=== PATIENT | female | born 1990 | race Hispanic/Latino ===

== ENCOUNTER 2017-09-15 18:14 | Emergency (ER) | payer MEDICAID ==
[2017-09-15 18:24] VITALS: TEMP 98; O2SAT 98
[2017-09-15] MEDS ORDERED: Tetracaine 0.5% Ophth (OR ONLY) ONE (19:19)
[2017-09-15] MEDS ORDERED: Fluorescein 1 mg Ophthalmic Strip ONE (19:19)
--- NOTE | 2017-09-15 19:32 | C.PDOC ---
History Of Present Illness 26 y/o female presents to ED with complaints of left eye discomfort and redness intermittently for 2 days. Patient states today she woke up with crusting to left eyelid and swelling which prompted visit to ED. Patient denies trauma, itching, teary eyes, URI symptoms or any other complaints at this time. Time Seen by Provider: 09/15/17 19:15 Chief Complaint (Nursing): Eye Problem History Per: Patient History/Exam Limitations: no limitations Onset/Duration Of Symptoms: Days Current Symptoms Are (Timing): Still Present Injury To Eye?: No Past Medical History Reviewed: Historical Data, Nursing Documentation, Vital Signs Vital Signs: Last Vital Signs Temp 98.0 F 09/15/17 18:22 Pulse 72 09/15/17 19:54 Resp 18 09/15/17 19:54 BP 124/72 09/15/17 19:54 Pulse Ox 98 09/15/17 19:54 Surgical History: Cholecystectomy - [facility] Procedures IRRIGATION OF EAR (06/02/15) Family History: States: No Known Family Hx - Social History Hx Tobacco Use: Yes Hx Alcohol Use: Yes Hx Substance Use: No - Immunization History Hx Tetanus Toxoid Vaccination: No Hx Influenza Vaccination: No Hx Pneumococcal Vaccination: No Review Of Systems Constitutional: Negative for: Fever, Chills Eyes: Positive for: Pain, Eyelid Inflammation, Redness ENT: Negative for: Ear Pain, Throat Pain Respiratory: Negative for: Cough Skin: Negative for: Rash Physical Exam - Physical Exam Appears: Non-toxic, No Acute Distress Skin: Warm, Dry, No Rash Head: Atraumatic, Normacephalic Eye(s): right: Normal Inspection, left: Other ((+)Infraorbital swelling (+)Mild ciliary injection of left conjunctiva .Acuity check 20/20 bilaterally ) Nose: Normal Oral Mucosa: Moist Throat: Normal, No Erythema, No Exudate Neck: Supple Chest: Symmetrical Extremity: Normal ROM, Capillary Refill (<2 seconds) Neurological/Psych: Oriented x3, Normal Speech, Normal Motor, Normal Sensation ED Course And Treatment O2 Sat by Pulse Oximetry: 98 (RA) Pulse Ox Interpretation: Normal Disposition - Disposition Referrals: Nanda Spears MD [Staff Provider] - Disposition: HOME/ ROUTINE Disposition Time: 19:29 Condition: STABLE Additional Instructions: Please follow up with PMD Use medications as directed Return to ER if worse Prescriptions: Cetirizine HCl [Zyrtec] 10 mg PO DAILY #20 capsule Tobramycin 0.3% [Tobrex 0.3% Opth Soln] 1 drop OS TID #1 bottle Instructions: Conjunctivitis (ED) Forms: [facility] (Sammarinese) - Clinical Impression Clinical Impression: Conjunctivitis - 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 - Scribe Statement The provider has reviewed the documentation as recorded by the Ananthibmaribell Person All medical record entries made by the Fouzia were at my direction and personally dictated by me. I have reviewed the chart and agree that the record accurately reflects my personal performance of the history, physical exam, medical decision making, and the department course for this patient. I have also personally directed, reviewed, and agree with the discharge instructions and disposition.
[2017-09-15 19:55] VITALS: BP 124/72; PULSE 72; RESP 18
== END 2017-09-15 19:56 | disposition home or self-care (01) ==
LOC: C.ER 18:14
DX: H10.9 Unspecified conjunctivitis (principal)

== ENCOUNTER 2018-11-09 20:39 | Emergency (ER) | payer MEDICAID | END 2018-11-09 21:37 | disposition home or self-care (01) | LOC: C.ER 20:39 ==

== ENCOUNTER 2019-01-01 19:38 | Emergency (ER) | payer MEDICAID ==
[2019-01-01 19:45] VITALS: RESP 20
[2019-01-01] MEDS ORDERED: Sodium Chloride 0.9% 1,000 ML IV ONE (20:01)
[2019-01-01] MEDS ORDERED: Sodium Chloride 0.9% 1,000 ML ONE (20:18)
--- NOTE | 2019-01-01 20:25 | C.PDOC ---
History Of Present Illness 28 y/o female comes in to ED complaining of lower abdominal pain x2 weeks that has worsened for the last 2 days. Patient denies nausea, vomiting, diarrhea, vaginal bleeding or discharge. Reports she was seen by OB who saw UTI and p atient was given antibiotics. Patient states that the pain persisted so she comes to the ER. Chief Complaint (Nursing): Abdominal Pain History Per: Patient History/Exam Limitations: no limitations Onset/Duration Of Symptoms: Days Current Symptoms Are (Timing): Still Present Past Medical History Reviewed: Historical Data, Nursing Documentation, Vital Signs Vital Signs: Last Vital Signs Temp 97.7 F 01/01/19 19:41 Pulse 106 H 01/01/19 19:41 Resp 20 01/01/19 19:41 BP 147/90 01/01/19 19:41 Pulse Ox 100 01/01/19 19:41 - Medical History PMH: Denies: Chronic Kidney Disease Surgical History: Cholecystectomy - [facility] Procedures IRRIGATION OF EAR (06/02/15) Family History: States: No Known Family Hx - Social History Hx Tobacco Use: Yes Hx Alcohol Use: Yes Hx Substance Use: No - Immunization History Hx Tetanus Toxoid Vaccination: No Hx Influenza Vaccination: No Hx Pneumococcal Vaccination: No Review Of Systems Except As Marked, All Systems Reviewed And Found Negative. Gastrointestinal: Positive for: Abdominal Pain (lower). Negative for: Nausea, Vomiting, Diarrhea Genitourinary: Negative for: Dysuria, Vaginal Discharge, Vaginal Bleeding Physical Exam - Physical Exam Appears: Non-toxic, No Acute Distress Skin: Warm, Dry Head: Atraumatic, Normacephalic Eye(s): bilateral: Normal Inspection Oral Mucosa: Moist Neck: Supple Cardiovascular: Rhythm Regular, No Murmur Respiratory: Normal Breath Sounds, No Rales, No Rhonchi, No Wheezing Gastrointestinal/Abdominal: Soft, Tenderness (LLQ tenderness, left more than right), No Guarding, No Rebound Extremity: Bilateral: Atraumatic, Normal Color And Temperature, Normal ROM Neurological/Psych: Oriented x3, Normal Speech ED Course And Treatment - Laboratory Results Result Diagrams: 01/01/19 20:26 01/01/19 20:26 O2 Sat by Pulse Oximetry: 100 (RA) Pulse Ox Interpretation: Normal - CT Scan/US CT abd/pelvis Other Rad Studies (CT/US): Read By Radiologist, Radiology Report Reviewed CT/US Interpretation: CT SCAN OF THE ABDOMEN AND PELVIS WITH CONTRAST. CLINICAL HISTORY: Lower abdominal and pelvic pain. TECHNIQUE: Multiple axial and coronal CT images were obtained through the abdomen and pelvis after administration of intravenous and oral contrast material. COMMENTS: Uncomplicated colonic diverticulosis. 1.8 cm ruptured follicle/corpus luteum cyst of the right ovary. Unremarkable intrauterine device. Minimal amount of free pelvic fluid. The liver is of uniform attenuation without mass or defect. There is no intra or extrahepatic biliary ductal dilatation. The spleen is normal. The gallbladder is surgically absent. The pancreas is of normal contour and attenuation characteristics. There is no evidence of adrenal mass. Both kidneys demonstrate prompt and equal nephrograms. The kidneys are normal in size, shape and configuration. There is no evidence of renal or ureteral mass. No renal or ureteral calculi are identified. There is no hydroureter or hydronephrosis. No evidence for appendicitis. There is no bowel wall thickening. No evidence for small or large bowel obstruction. There is no evidence of abdominal ascites or lymphadenopathy. There is no evidence of intrinsic or extrinsic bladder mass. Images of the lung bases show no evidence of pleural or parenchymal mass. There are no pleural effusions. The bony structures are free of lytic or blastic lesions. IMPRESSION: Uncomplicated colonic diverticulosis. 1.8 cm ruptured follicle/corpus luteum cyst of the right ovary. Unremarkable intrauterine device. Minimal amount of free pelvic fluid. Thank you for your kind referral of this patient. . Electronically signed on Jan 02, 2019 1:22:37 AM EDT by: Wai Levy M.D., Certified by ABR, MSK, Neuroradiology. Medical Decision Making Medical Decision Making: Plan: --Abd/Pel CT --Labs --UA, Urine culture --IV fluids 1L --Toradol 30 mg IVP Disposition Counseled Patient/Family Regarding: Diagnosis - Disposition Referrals: [facility] [Outside] Disposition: HOME/ ROUTINE Disposition Time: :27 Condition: STABLE Prescriptions: Naproxen [Naprosyn] 1 tab PO BID PRN #25 tab PRN Reason: Pain Instructions: Ovarian Cyst (DC) Forms: [facility] (Yi) - POA Present On Arrival: None - Clinical Impression Clinical Impression: Ruptured ovarian cyst - Scribe Statement The provider has reviewed the documentation as recorded by the Fouzia Daley Provider Attestation: All medical record entries made by the Scribe were at my direction and personally dictated by me. I have reviewed the chart and agree that the record accurately reflects my personal performance of the history, physical exam, medical decision making, and the department course for this patient. I have also personally directed, reviewed, and agree with the discharge instructions and disposition.
[2019-01-01] MEDS ORDERED: Iohexol 240 (50 ml) ONE (20:36)
[2019-01-01 20:39] LABS: BASO # 0.1 K/uL (0.0-0.2); BASO % 0.7 % (0.0-2.0); EOS # 0.3 K/uL (0.0-0.7); EOS % 2.2 % (0.0-4.0); HEMOGLOBIN 14.4 g/dL (11.0-16.0); LYMPH # 3.9 K/uL (1.0-4.3); LYMPH % 34.2 % (20.0-40.0); MEAN CORPUSCULAR HEMOGLOBIN 30.4 pg (27.0-31.0); MEAN CORPUSCULAR HGB CONC 32.7 g/dL (33.0-37.0); MEAN PLATELET VOLUME 9.2 fL (7.2-11.7); MONO # 0.7 K/uL (0.0-0.8); MONO % 5.8 % (0.0-10.0); NEUT # 6.6 K/uL (1.8-7.0); NEUT % 57.1 % (50.0-75.0); RBC 4.74 Mil/uL (3.80-5.20); RED CELL DISTRIBUTION WIDTH 13.7 % (11.5-14.5); WHITE BLOOD COUNT 11.5 K/uL (4.8-10.8)
[2019-01-01 20:41] LABS: MEAN CELL VOLUME 93.2 fL (81.0-99.0)
[2019-01-01 20:52] LABS: HCG,QUALITATIVE URINE NEGATIVE (NEGATIVE)
[2019-01-01 20:53] LABS: ALB/GLOB RATIO 1.8 (1.0-2.1); ALBUMIN 4.8 g/dL (3.5-5.0); ALT/SGPT 10 U/L (9-52); AST/SGOT 22 U/L (14-36); BLOOD UREA NITROGEN 9 mg/dL (7-17); CALCIUM 9.3 mg/dl (8.6-10.4); GFR NON-AFRICAN AMERICAN > 60; LIPASE 121 U/L (23-300)
[2019-01-01 20:59] LABS: SQUAMOUS EPITHIAL 1 /hpf (0-5); URINE BACTERIA RARE (<OCC); URINE BILIRUBIN NEGATIVE (NEGATIVE); URINE BLOOD NEGATIVE (NEGATIVE); URINE CLARITY Clear (Clear); URINE COLOR Yellow (YELLOW); URINE GLUCOSE (UA) NORMAL (Normal); URINE LEUKOCYTE ESTERASE NEG Leu/uL (Negative); URINE PROTEIN NEGATIVE (NEGATIVE); URINE UROBILINOGEN NORMAL mg/dL (0.2-1.0)
[2019-01-01] MEDS ORDERED: Iodixanol 320 MG/ML 100 ML BOTTLE IV ONE (21:12)
[2019-01-01 23:25] VITALS: BP 127/72; PULSE 69; TEMP 98.1
[2019-01-02 01:23] VITALS: O2SAT 100
--- NOTE | 2019-01-02 09:07 | CT ---
Date of service: 01/02/2019 PROCEDURE: CT Abdomen and Pelvis with contrast HISTORY: Lower abdominal pain COMPARISON: None available. TECHNIQUE: CT scan of the abdomen and pelvis was performed after administration of intravenous contrast. Oral contrast was administered. Coronal and sagittal reformatted images were obtained. Contrast dose: 100 mL Omnipaque 240 Radiation dose: Total exam DLP = 0.0 mGy-cm. This CT exam was performed using one or more of the following dose reduction techniques: Automated exposure control, adjustment of the mA and/or kV according to patient size, and/or use of iterative reconstruction technique. FINDINGS: LOWER THORAX: The visualized lungs are clear. LIVER: Normal in size with homogeneous enhancement. No gross lesion or ductal dilatation. GALLBLADDER AND BILE DUCTS: Well distended. No calcified gallstones, wall thickening or pericholecystic fluid. PANCREAS: Normal in size with homogeneous enhancement. No gross lesion or ductal dilatation. SPLEEN: Normal in size and appearance. ADRENALS: No discrete nodule. KIDNEYS AND URETERS: Normal in size with homogeneous enhancement. No hydronephrosis. No solid mass. VASCULATURE: No aortic aneurysm. There are no aortic atherosclerotic calcifications or mural plaque present. BOWEL: The small bowel loops are normal in caliber. The colon is grossly normal in appearance. No bowel wall thickening or obstruction. APPENDIX: Normal appendix. PERITONEUM: Trace free fluid in the pelvis is likely physiologic. No free air. LYMPH NODES: No enlarged lymph nodes. BLADDER: Well distended and normal in appearance. REPRODUCTIVE: The uterus is normal in size. An IUD remains in satisfactory position. There is a 1.6 cm dominant follicle in the right ovary. BONES: No acute fracture. Within normal limits for the patient's age. OTHER FINDINGS: None. IMPRESSION: No acute abdominal or pelvic abnormality. IUD remains in satisfactory position. A preliminary report was provided by [facility].
== END 2019-01-02 01:53 | disposition home or self-care (01) ==
LOC: C.ER 19:38
DX: N83.209 Unspecified ovarian cyst, unspecified side (principal)
CPT/HCPCS: 74177; 80053; 81001; 83690; 84703; 85025; 87086; 96374; 99285; J1885; J7030; Q9967

== ENCOUNTER 2019-01-24 15:09 | Emergency (ER) | payer MEDICAID ==
[2019-01-24 15:29] VITALS: BMI 29.0
[2019-01-24 15:41] VITALS: BP 131/88; PULSE 89; RESP 17; TEMP 98.4; O2SAT 100
--- NOTE | 2019-01-24 16:05 | C.PDOC ---
History Of Present Illness 28 year old female presents to ED with complaint of right-sided pelvic pain and abnormal period. Patient states that she came to [facility] 1 week ago and was diagnosed with a ruptured ovarian cyst. Patient states that then she got her period and that is was brown,chunky, and heavier than normal. Patient complains of 1 week of cramps and nausea. She also noticed small amounts of bright red blood upon wiping yesterday and today. Patient states that she is not sexually active and has an IUD in place. She denies vaginal discharge, dysuria, back pain, SOB, and vomiting. Chief Complaint (Nursing): Female Genitourinary History Per: Patient History/Exam Limitations: no limitations Onset/Duration Of Symptoms: Days (7) Current Symptoms Are (Timing): Still Present Quality Of Discomfort: Cramping Associated Symptoms: Nausea. denies: Vomiting, Back Pain, Urinary Symptoms, Other (SOB) Alleviating Factors: None Past Medical History Reviewed: Historical Data, Nursing Documentation, Vital Signs Vital Signs: Last Vital Signs Temp 98.4 F 01/24/19 15:31 Pulse 89 01/24/19 15:31 Resp 17 01/24/19 15:31 BP 131/88 01/24/19 15:31 Pulse Ox 100 01/24/19 15:31 - Medical History PMH: Denies: Chronic Kidney Disease Surgical History: Cholecystectomy - [facility] Procedures IRRIGATION OF EAR (06/02/15) Family History: States: Unknown Family Hx - Social History Hx Tobacco Use: Yes Hx Alcohol Use: Yes Hx Substance Use: No - Immunization History Hx Tetanus Toxoid Vaccination: No Hx Influenza Vaccination: No Hx Pneumococcal Vaccination: No Review Of Systems Constitutional: Negative for: Fever, Chills, Weakness Respiratory: Negative for: Shortness of Breath Gastrointestinal: Positive for: Nausea, Other (blood noticed when wiping). Negative for: Vomiting Genitourinary: Positive for: Pelvic Pain. Negative for: Dysuria, Vaginal Discharge Musculoskeletal: Negative for: Back Pain Neurological: Negative for: Weakness, Numbness, Dizziness Physical Exam - Physical Exam Appears: Non-toxic, No Acute Distress Skin: Normal Color, Warm, Dry Head: Atraumatic, Normacephalic Neck: Normal ROM, Supple Chest: Symmetrical, No Deformity Cardiovascular: Rhythm Regular, No Murmur Respiratory: Normal Breath Sounds, No Accessory Muscle Use, No Rales, No Rhonchi, No Wheezing Gastrointestinal/Abdominal: Soft, No Tenderness Back: No CVA Tenderness Pelvic: Other (tenderness to the right side of the pelvis on palpation) Extremity: Bilateral: Atraumatic Neurological/Psych: Oriented x3, Normal Speech, Normal Cognition, Normal Motor, Normal Sensation ED Course And Treatment - Laboratory Results Result Diagrams: 01/24/19 16:21 01/24/19 16:21 O2 Sat by Pulse Oximetry: 100 (in RA) - CT Scan/US Pelvis/Transvaginal US Other Rad Studies (CT/US): Interpreted By Me, Read By Radiologist CT/US Interpretation: Accession No. : [id number]. Patient Name / ID : FRANCE BEARD / [id number]. Exam Date : 01/24/2019 16:41:24 ( Approved ). Study Commen t : Sex / Age : F / 28Y. Creator : Kalyn Mendez MD. Dictator : Kalyn Mendez MD. Setter Up : Surface Hydrologist : Kalyn Mendez MD. Approver2 : Report Date : 01/24/2019 17:31:07. My Comment : . Date of service: 01/24/2019. HISTORY: vaginal bleeding. COMPARISON: None available. TECHNIQUE: Real-time transabdominal pelvic ultrasound was performed. In addition a transvaginal pelvic ultrasound was necessary to better depict pelvic anatomy. FINDINGS: UTERUS: Measures 9.3 x 3.9 x 5.5 cm. Anteverted. ENDOMETRIUM: Measures 9 mm in diameter. IUD appears in place. CERVIX: Nabothian cysts. RIGHT OVARY: Measures 3.1 x 2.3 x 2.6 cm. Blood flow is demonstrated. LEFT OVARY: Measures 3.1 x 2.6 x 2.7 cm. Blood flow is demonstrated. FREE FLUID: No significant free fluid noted. OTHER FINDINGS: None. IMPRESSION: IUD. Medical Decision Making Medical Decision Making: Impression: 28 year old female presents to ED with complaint of right-sided pelvic pain and abnormal period. Plan: Labs and UA unremarkable Pelvic US ordered-CERVIX:Nabothian cysts d/w patient results and advised her to keep her appt with LEATHER SHAVER on Wednesday Continue Motrin as needed for pain patient verbalized understanding and is in agreement with plan patient is stable for discharge Disposition Counseled Patient/Family Regarding: Studies Performed, Diagnosis, Need For Followup, Rx Given - Disposition Referrals: Nanda Spears MD [Staff Provider] - [facility] [Outside] Disposition: HOME/ ROUTINE Disposition Time: 17:47 Condition: STABLE Additional Instructions: Please keep your appt with your LEATHER SHAVER doctor on Wednesday Take Motrin as needed for pain Return to ED if symptoms worsen Prescriptions: Ibuprofen [Motrin] 600 mg PO Q8 PRN #30 tab PRN Reason: Pain, Moderate (4-7) Instructions: Chronic Pelvic Pain in Women Forms: [facility] (Guinean) - Clinical Impression Clinical Impression: Pelvic pain, Nabothian cyst - PA / STAPLE FIBER WASHER / Resident Statement MD/DO has reviewed & agrees with the documentation as recorded. (Bela Ferirs) - Scribe Statement The provider has reviewed the documentation as recorded by the Scribe (Bela Ferris) All medical record entries made by the Scribe were at my direction and personally dictated by me. I have reviewed the chart and agree that the record accurately reflects my personal performance of the history, physical exam, medic al decision making, and the department course for this patient. I have also personally directed, reviewed, and agree with the discharge instructions and disposition.
[2019-01-24 16:24] LABS: BASO # 0.1 K/uL (0.0-0.2); BASO % 1.1 % (0.0-2.0); EOS # 0.1 K/uL (0.0-0.7); EOS % 0.9 % (0.0-4.0); HEMOGLOBIN 14.2 g/dL (11.0-16.0); LYMPH # 2.8 K/uL (1.0-4.3); LYMPH % 38.9 % (20.0-40.0); MEAN CELL VOLUME 90.8 fL (81.0-99.0); MEAN CORPUSCULAR HEMOGLOBIN 30.9 pg (27.0-31.0); MEAN PLATELET VOLUME 8.6 fL (7.2-11.7); MONO # 0.6 K/uL (0.0-0.8); MONO % 8.5 % (0.0-10.0); NEUT # 3.7 K/uL (1.8-7.0); NEUT % 50.6 % (50.0-75.0); NRBC % 0.1 % (0.0-2.0); RBC 4.59 Mil/uL (3.80-5.20); RED CELL DISTRIBUTION WIDTH 13.6 % (11.5-14.5); WHITE BLOOD COUNT 7.3 K/uL (4.8-10.8)
[2019-01-24 16:27] LABS: HCG,QUALITATIVE URINE NEGATIVE (NEGATIVE)
[2019-01-24 16:28] LABS: SQUAMOUS EPITHIAL 1 /hpf (0-5); URINE BILIRUBIN NEGATIVE (NEGATIVE); URINE BLOOD NEGATIVE (NEGATIVE); URINE CLARITY Clear (Clear); URINE COLOR Yellow (YELLOW); URINE GLUCOSE (UA) NORMAL (Normal); URINE LEUKOCYTE ESTERASE NEG Leu/uL (Negative); URINE PROTEIN NEGATIVE (NEGATIVE); URINE UROBILINOGEN NORMAL mg/dL (0.2-1.0)
[2019-01-24 16:41] LABS: ALB/GLOB RATIO 1.9 (1.0-2.1); ALBUMIN 4.7 g/dL (3.5-5.0); ALT/SGPT 17 U/L (9-52); AST/SGOT 30 U/L (14-36); BLOOD UREA NITROGEN 11 mg/dL (7-17); CALCIUM 9.5 mg/dl (8.6-10.4); GFR NON-AFRICAN AMERICAN > 60
--- NOTE | 2019-01-24 17:34 | US ---
Date of service: 01/24/2019 HISTORY: vaginal bleeding COMPARISON: None available. TECHNIQUE: Real-time transabdominal pelvic ultrasound was performed. In addition a transvaginal pelvic ultrasound was necessary to better depict pelvic anatomy. FINDINGS: UTERUS: Measures 9.3 x 3.9 x 5.5 cm. Anteverted. ENDOMETRIUM: Measures 9 mm in diameter. IUD appears in place. CERVIX: Nabothian cysts. RIGHT OVARY: Measures 3.1 x 2.3 x 2.6 cm. Blood flow is demonstrated. LEFT OVARY: Measures 3.1 x 2.6 x 2.7 cm. Blood flow is demonstrated. FREE FLUID: No significant free fluid noted. OTHER FINDINGS: None. IMPRESSION: IUD.
== END 2019-01-24 18:06 | disposition home or self-care (01) ==
LOC: C.ER 15:09
DX: N88.8 Other specified noninflammatory disorders of cervix uteri (principal); R10.2 Pelvic and perineal pain